=== PATIENT | female | born 1965 | race Caucasian/White ===

== ENCOUNTER → 2016-11-12 | Outpatient (CLI) | payer OTHER ==
[~2016-11-12] MED LIST: ANTIVERT-DPS25 MG PO; ASA325 MG PO; BACITRACIN15 G1 TP; BETADINE DPS1 GM TP; COLACE-DPS100 MG PO; COMBIVENT RESPIM4 GM IH; DESYREL DPS100 MG PO; GLUCOPHAGE1000 MG PO; KLONOPIN DPS0.5 MG PO; LAMOTRIGINE ER300 MG PO; LEVEMIR100 UNIT/1 SQ; MELATONIN5 M2 PO; NORCO 7.5-3251 EACH PO; NOVOLOG100 UNIT/2 SQ; PROVENTIL HFA6.7 GM IH; SYNTHROID DPS0.2 MG PO; THERA1 EACH PO; TRADJENTA5 MG PO; TYLENOL DPS325 MG PO; VALIUM-DPS5 MG PO; VITAMIN D31000 UNIT PO; ZANTAC300 MG PO; ZOCOR DPS10 MG PO
== END | disposition home or self-care (01) ==
LOC: PTH.S 12:54
DX: E11.9 Type 2 diabetes mellitus without complications (principal)

== ENCOUNTER → 2016-11-17 | Outpatient (CLI) | payer OTHER | END | disposition home or self-care (01) | LOC: RAD.S 13:12 | DX: N63 Unspecified lump in breast (principal); N64.89 Other specified disorders of breast; D17.4 Benign lipomatous neoplasm of intrathoracic organs; Z85.43 Personal history of malignant neoplasm of ovary ==